=== PATIENT | male | born 1965 | race Caucasian/White ===

== ENCOUNTER 2022-03-23 10:42 | Emergency (ER) | payer SELFPAY ==
[2022-03-23] MEDS ORDERED: Aspirin Chewable 81 MG TAB ONE (11:02)
[2022-03-23] MEDS ORDERED: Nitroglycerin 0.4 MG TAB 1 EACH ONE ×4 (11:02→11:29)
[2022-03-23 11:13] LABS: #Basophils 0.1 thou/uL (0.0-0.2); #Eosinphils 0.1 thou/uL (0.0-0.7); #Lymphocytes 1.3 thou/uL (1.20-3.40); #Monocytes 0.6 thou/uL (0.11-0.59); %Basophils 1.3 % (0.0-1.0); %Eosinophils 1.7 % (0.0-10.0); %Lymphocytes 21.1 % (21.0-51.0); %Monocytes 9.9 % (0.0-10.0); Hemoglobin 16.6 g/dL (14.0-18.0); Mean Corpuscular Hemoglobin 33.7 pg (27.0-31.0); Mean Corpuscular Volume 96.3 fL (78.0-98.0); Platelet Count 167 thou/uL (130-400); RBC Distribution Width 11.9 % (11.5-14.5); Red Blood Cell (RBC) Count 4.92 mill/uL (4.70-6.10); White Blood Cell (WBC) Count 6.1 thou/uL (4.8-10.8)
[2022-03-23 11:24] LABS: ALT (SGPT) 39 U/L (8-55); AST (SGOT) 27 U/L (5-34); Albumin 4.7 g/dL (3.5-5.0); Alkaline Phosphatase 95 U/L (40-110); Anion Gap 20 mmol/L (10-20); BUN (Urea Nitrogen) 20 mg/dL (8.4-25.7); Calc. Creatinine Clearance 0 mL/min (70-130); Calcium 9.7 mg/dL (7.8-10.44); Carbon Dioxide 23 mmol/L (22-29); Chloride 99 mmol/L (98-107); Estimated GFR 49; Globulin 2.9 g/dL (2.4-3.5); Glucose 286 mg/dL (70-105); Lipase 21 U/L (8-78); Potassium 3.9 mmol/L (3.5-5.1); Protein, Total 7.6 g/dL (6.0-8.3); Sodium 138 mmol/L (136-145)
[2022-03-23] MEDS ORDERED: Acetaminophen 325 MG TAB PO PRN (14:15)
[2022-03-23] MEDS ORDERED: Ondansetron PF 4 MG/2 ML Vial IVP PRN (14:15)
[2022-03-23] MEDS ORDERED: Ondansetron ODT 4 MG TAB SL PRN (14:15)
== END 2022-03-23 12:57 | disposition short-term general hospital (02) ==
LOC: BURERS 10:42
DX: R07.9 Chest pain, unspecified (principal); E78.5 Hyperlipidemia, unspecified
CPT/HCPCS: 71045; 80053; 83690; 84484; 85025; 93005